=== PATIENT | female | born 1960 | race Caucasian/White ===

== ENCOUNTER 2020-02-19 21:44 | Inpatient (IN) ==
--- OUTSIDE RECORDS SUMMARY | 2020-02-19 21:49 | External Medical Summary | Continuity of Care Document ---
:1960 Author Name Abbi Corona Address Unavailable Unavailable , Care Team Providers Name Role Phone Janel [email or web address] PCP, UNKNOWN Unavailable Unavailable Problems Active medical history not documented Allergies and Adverse Reactions Allergy history not documented Medications Medications not documented Procedures Procedures not documented Immunizations Immunizations not documented Plan of Treatment Planned Observations Planned Goals not documented Results No Known Results Results not documented
--- NOTE | 2020-02-19 22:11 | Emergency Department Note ---
Impression & Plan SOB (shortness of breath), Weakness, Pneumonia, COVID-19 ED Provider Note NAME: LEVI HOWE AGE: 59 SEX: F : 1960 ARRIVES VIA: Ambulance INFORMANT: [Patient][ems] ED PROVIDER(S): [Jose Miguel Workman MD] CHIEF COMPLAINT: Short of breath, vomiting, body aches HISTORY OF PRESENT ILLNESS: The patient is a 59-year-old female who was diagnosed with COVID-19 just 2 days ago. She has been sick for a week with flulike symptoms. Her symptoms started after her flu vaccine and she thought at first, she was having a flu vaccine reaction. She has had vomiting, nausea, body aches, a fever, headache, cough and shortness of breath. She is currently on a Z-Shmuel, prednisone and an albuterol inhaler. She states that she is so weak and exhausted that she has not moved from her couch in 2 days. Today, the ambulance was summoned because of her dyspnea and complaints. She was reportedly in the upper 80s with an O2 saturation when seen by EMS, oxygen made her feel better. REVIEW OF SYSTEMS: See HPI for pertinent positives and negatives. A total of ten systems were reviewed and were otherwise negative. PMHx/PSHx: See Below SOCIAL HISTORY: See Below. PHYSICAL EXAM: GENERAL: Patient is in mild respiratory distress HEENT: No acute trauma, normocephalic atraumatic, mucous membranes moist, no nasal congestion, no scleral icterus. NECK: No stridor, no adenopathy, no meningismus, trachea is midline. LUNGS: She has an increased respiratory rate, no obvious wheeze. She is in some mild respiratory distress. HEART: Regular rhythm, equal radial pulses bilaterally ABDOMEN: Soft, nontender, bowel sounds positive, no hernias, no peritonitis. EXTREMITIES: No cyanosis or edema, full range of motion of all the joints without pain or difficulty, no signs for acute trauma. NEUROLOGIC: Oriented x 3, no acute motor or sensory deficits, no focal weakness. SKIN: No rash, no jaundice, no diaphoresis. DIFFERENTIAL DIAGNOSIS: Reactive airway disease, pneumonia, pneumothorax, COPD, CHF, coronavirus, bronchitis, influenza, dehydration, infections, cardiac ischemia, pulmonary embolism, musculoskeletal, gastrointestinal, as well as other pathologies. EMERGENCY DEPARTMENT COURSE/PROCEDURES: ECG: Indication was shortness of breath. The ECG shows a normal sinus rhythm with a rate of 79. The QTc is 426. There is some mild LVH. No ST elevation, no PVCs. Continuous Cardiac Monitoring: An order was placed for continuous cardiac monitoring. The monitor shows a rate of 70 with normal sinus rhythm. Critical Care Note: I have personally spent 52 minutes of critical care time in the direct management of this patient. This includes bedside care, interpretation of diagnostic studies, and testing, discussion with consultants, patient, and family members, and other required patient management activities. This 52 minutes is in excess of all separately billable procedures. MEDICAL DECISION MAKING: There is no leukocytosis or concerning anemia. There is a normal platelet count. No worrisome coagulopathy. D-dimer is not elevated. A negative D-dimer makes the diagnosis of PE less likely. There is no significant electrolyte abnormality or kidney failure. Lactic acid level is not elevated making severe sepsis less likely. No concerning liver enzyme elevation. Procalcitonin level was not elevated. ECG shows a sinus rhythm, no acute ischemia. Cardiac enzyme testing x1 is not consistent with acute cardiac injury. Chest film shows bilateral infiltrates consistent with pneumonia. The patient was given IV saline, 1 L. She has been watched on the awake overnight monitor. Her O2 saturation was initially recorded at 88%, she has been in the low 90s since. The patient is in need of hospitalization. She has bilateral pneumonia from coronavirus. She is weak, vomiting, short of breath. She is not functioning well at home. I spoke to the patient about her findings. I did speak with case management, the on-call hospitalist was consulted. Past Med/Surg History Medical History Hypertension Social History Smoking Status: Never smoker Feels Safe at Home: Yes Allergies Allergies Allergy/AdvReac Type Severity Reaction Status Date / Time UNKNOWN ANTIBIOTIC Allergy Unknown Unknown Uncoded 02/19/20 23:04 Home Meds Home Medications Medication Instructions Recorded Confirmed albuterol sulfate [Ventolin HFA] 1 - 2 puff INHALATION DIRECTED 02/19/20 02/19/20 PRN azithromycin 250 mg PO DAILY 02/19/20 02/19/20 lisinopril-hydrochlorothiazide 1 tab PO DAILY 02/19/20 02/19/20 prednisone 0 mg PO DAILY 02/19/20 02/19/20 Results & Data (ED) Vital Signs Vital Signs - 24 hr 02/19/20 21:48 02/19/20 21:50 02/19/20 21:51 Temperature 36.7 C Temperature Source Oral Pulse Rate 77 77 Pulse Rate [Apical] Pulse Rate from SpO2 Sensor 77 Pulse Rhythm Regular Pulse Rhythm [Apical] Pulse Strength [Apical] Respiratory Rate 29 H 22 Respiratory Effort / Characteristics Non-Labored Respiratory Depth Normal Respiratory Pattern Regular Blood Pressure 154/90 H 154/90 H Blood Pressure [Right Arm] Blood Pressure Mean 107 111 Blood Pressure Mean [Right Arm] Blood Pressure Position Lying Blood Pressure Position [Right Arm] Pulse Oximetry 96 95 96 Oxygen Delivery Method Room Air Room Air Sepsis Recent Fever Within 48 Hours No Sepsis New/Unexplained Change in Mental Status No Sepsis Action Taken by Nursing No Action Required 02/19/20 21:58 02/19/20 22:00 02/19/20 22:06 Temperature Temperature Source Pulse Rate 75 73 Pulse Rate [Apical] Pulse Rate from SpO2 Sensor 75 73 Pulse Rhythm Pulse Rhythm [Apical] Pulse Strength [Apical] Respiratory Rate 25 H 25 H 25 H Respiratory Effort / Characteristics Moaning Respiratory Depth Respiratory Pattern Blood Pressure 135/86 Blood Pressure [Right Arm] Blood Pressure Mean 91 Blood Pressure Mean [Right Arm] Blood Pressure Position Blood Pressure Position [Right Arm] Pulse Oximetry 95 96 94 Oxygen Delivery Method Room Air Sepsis Recent Fever Within 48 Hours Sepsis New/Unexplained Change in Mental Status Sepsis Action Taken by Nursing 02/19/20 22:07 02/19/20 22:08 02/19/20 22:09 Temperature Temperature Source Pulse Rate 73 72 Pulse Rate [Apical] 70 Pulse Rate from SpO2 Sensor 73 Pulse Rhythm Regular Pulse Rhythm [Apical] Regular Pulse Strength [Apical] Normal Respiratory Rate 26 H 30 H 28 H Respiratory Effort / Characteristics Non-Labored Non-Labored Respiratory Depth Normal Respiratory Pattern Regular Blood Pressure 147/85 H Blood Pressure [Right Arm] 147/85 H Blood Pressure Mean 92 Blood Pressure Mean [Right Arm] 105 Blood Pressure Position Blood Pressure Position [Right Arm] Sitting Pulse Oximetry 95 95 95 Oxygen Delivery Method Room Air Room Air Room Air Sepsis Recent Fever Within 48 Hours Sepsis New/Unexplained Change in Mental Status Sepsis Action Taken by Nursing 02/19/20 22:10 02/19/20 22:20 02/19/20 22:30 Temperature Temperature Source Pulse Rate 72 73 72 Pulse Rate [Apical] Pulse Rate from SpO2 Sensor 73 73 72 Pulse Rhythm Pulse Rhythm [Apical] Pulse Strength [Apical] Respiratory Rate 31 H 28 H 28 H Respiratory Effort / Characteristics Respiratory Depth Respiratory Pattern Blood Pressure 122/78 Blood Pressure [Right Arm] Blood Pressure Mean 94 Blood Pressure Mean [Right Arm] Blood Pressure Position Blood Pressure Position [Right Arm] Pulse Oximetry 95 93 93 Oxygen Delivery Method Sepsis Recent Fever Within 48 Hours Sepsis New/Unexplained Change in Mental Status Sepsis Action Taken by Nursing 02/19/20 22:40 02/19/20 22:53 02/19/20 23:30 Temperature Temperature Source Pulse Rate 71 Pulse Rate [Apical] 72 Pulse Rate from SpO2 Sensor 71 Pulse Rhythm Pulse Rhythm [Apical] Pulse Strength [Apical] Respiratory Rate 31 H 22 Respiratory Effort / Characteristics Non-Labored Respiratory Depth Respiratory Pattern Blood Pressure Blood Pressure [Right Arm] 153/91 H Blood Pressure Mean Blood Pressure Mean [Right Arm] 111 Blood Pressure Position Blood Pressure Position [Right Arm] Pulse Oximetry 93 93 94 Oxygen Delivery Method Room Air Room Air Sepsis Recent Fever Within 48 Hours Sepsis New/Unexplained Change in Mental Status Sepsis Action Taken by Nursing 02/20/20 00:00 02/20/20 00:12 Temperature Temperature Source Pulse Rate Pulse Rate [Apical] 71 Pulse Rate from SpO2 Sensor Pulse Rhythm Pulse Rhythm [Apical] Pulse Strength [Apical] Respiratory Rate 22 Respiratory Effort / Characteristics Non-Labored Respiratory Depth Respiratory Pattern Blood Pressure Blood Pressure [Right Arm] 134/86 Blood Pressure Mean Blood Pressure Mean [Right Arm] 102 Blood Pressure Position Blood Pressure Position [Right Arm] Pulse Oximetry 92 Oxygen Delivery Method Room Air Sepsis Recent Fever Within 48 Hours Sepsis New/Unexplained Change in Mental Status Sepsis Action Taken by [facility]way Medications Current Medication List: was personally reviewed by me Laboratory Data Attestation: I reviewed the patient's lab results. Result diagrams: 02/19/20 22:05 02/19/20 22:05 Lab Results 02/19/20 02/19/20 02/19/20 Range/Units 22:05 22:05 22:05 WBC 8.34 (4.8-10.8) K/uL RBC 5.08 (4.2-5.4) M/uL Hgb 15.5 (12.0-16.0) g/dL Hct 46.5 (37-47) % MCV 91.5 (80-100) fL MCH 30.5 (25-34) pg MCHC 33.3 (32-36) g/dL RDW Std Deviation 44.3 (36.4-46.3) fL RDW Coeff of Lisha 13.2 (11.5-14.5) % Plt Count 210 (130-400) K/uL MPV 11.6 H (7.4-10.4) fL Immature Gran % (Auto) 2.2 % Neut % (Auto) 69.8 % Lymph % (Auto) 18.5 % [place] % (Auto) 9.4 % Eos % (Auto) 0.0 % Baso % (Auto) 0.1 % Neut # (Auto) 5.83 (1.4-6.5) K/uL Lymph # (Auto) 1.54 (1.2-3.4) K/uL [place] # (Auto) 0.78 H (0.11-0.59) K/uL Eos # (Auto) 0.00 (0-0.5) K/uL Baso # (Auto) 0.01 (0-0.2) K/uL Immature Gran # (Auto) 0.18 H (0.00-0.02) K/uL PT 12.4 H (9.0-12.0) Seconds INR 1.2 H (0.9-1.1) APTT 26.1 (21.0-31.0) Seconds PTT Ratio 0.9 D-Dimer (0-500) ug/L FEU Sodium (136-145) mmol/L Potassium (3.5-5.1) mmol/L Chloride (98-107) mmol/L Carbon Dioxide (21-32) mmol/L Anion Gap (3-11) BUN (7-18) mg/dl Creatinine (0.6-1.2) mg/dl Est Cr Clr Drug Dosing ml/min Est GFR ( Amer) Est GFR (Non-Af Amer) BUN/Creatinine Ratio (10-20) Glucose (70-99) mg/dl Lactate (0.4-2.0) mmol/L Calcium (8.5-10.1) mg/dl Magnesium (1.8-2.4) mg/dl Total Bilirubin (0.2-1) mg/dl AST (15-37) U/L ALT (12-78) U/L Alkaline Phosphatase (45-117) U/L Troponin I (0-0.045) ng/ml Total Protein (6.4-8.2) gm/dl Albumin (3.4-5.0) gm/dl Globulin (2.5-4.0) gm/dl Albumin/Globulin Ratio (0.9-2) Procalcitonin < 0.05 (0-0.5) ng/ml 02/19/20 02/19/20 02/19/20 Range/Units 22:05 22:05 22:15 WBC (4.8-10.8) K/uL RBC (4.2-5.4) M/uL Hgb (12.0-16.0) g/dL Hct (37-47) % MCV (80-100) fL MCH (25-34) pg MCHC (32-36) g/dL RDW Std Deviation (36.4-46.3) fL RDW Coeff of Lisha (11.5-14.5) % Plt Count (130-400) K/uL MPV (7.4-10.4) fL Immature Gran % (Auto) % Neut % (Auto) % Lymph % (Auto) % [place] % (Auto) % Eos % (Auto) % Baso % (Auto) % Neut # (Auto) (1.4-6.5) K/uL Lymph # (Auto) (1.2-3.4) K/uL [place] # (Auto) (0.11-0.59) K/uL Eos # (Auto) (0-0.5) K/uL Baso # (Auto) (0-0.2) K/uL Immature Gran # (Auto) (0.00-0.02) K/uL PT (9.0-12.0) Seconds INR (0.9-1.1) APTT (21.0-31.0) Seconds PTT Ratio D-Dimer 330 (0-500) ug/L FEU Sodium 137 (136-145) mmol/L Potassium 3.8 (3.5-5.1) mmol/L Chloride 105 (98-107) mmol/L Carbon Dioxide 26 (21-32) mmol/L Anion Gap 6.0 (3-11) BUN 13 (7-18) mg/dl Creatinine 0.79 (0.6-1.2) mg/dl Est Cr Clr Drug Dosing 111.0 ml/min Est GFR ( Amer) 96.3 Est GFR (Non-Af Amer) 83.1 BUN/Creatinine Ratio 16.2 (10-20) Glucose 150 H (70-99) mg/dl Lactate 1.4 (0.4-2.0) mmol/L Calcium 8.8 (8.5-10.1) mg/dl Magnesium 2.2 (1.8-2.4) mg/dl Total Bilirubin 0.8 (0.2-1) mg/dl AST 51 H (15-37) U/L ALT 49 (12-78) U/L Alkaline Phosphatase 112 (45-117) U/L Troponin I < 0.015 (0-0.045) ng/ml Total Protein 7.6 (6.4-8.2) gm/dl Albumin 3.3 L (3.4-5.0) gm/dl Globulin 4.3 H (2.5-4.0) gm/dl Albumin/Globulin Ratio 0.8 L (0.9-2) Procalcitonin (0-0.5) ng/ml Administered Medications Discontinued Medications Sodium Chloride (Nss 1000ml) 1,000 mls @ 999 mls/hr IV .Q1H1M REYNALDO Stop: 02/19/20 23:15 Last Infusion: 02/19/20 23:23 Dose: 0 mls/hr Documented by: [id number] Admin: 02/19/20 22:14 Dose: 999 mls/hr Documented by: [id number] Ioversol (Optiray 320 125ml) 125 ml IV ONCE ONE Stop: 02/20/20 00:06 Last Admin: 02/20/20 00:05 Dose: 112 ml Documented by: [id number] Imaging Data Attestation: I personally reviewed and interpreted this imaging study as follows: My Impression: Chest x-ray: There are bilateral infiltrates consistent with a bilateral pneumonia. No pneumothorax. Discharge Plan Visit Data Chief Complaint: Shortness of Breath/Dyspnea Stated Complaint: SOB, COUGH, DIARRHEA, NAUSEA, COVID + ED Provider: Jose Miguel Workman Discharge Problem: SOB (shortness of breath), Weakness, Pneumonia, COVID-19 Patient Disposition: Admitted As Inpatient Condition: Fair Forms Stand Alone Forms: My [facility] iMove Prescriptions Prescriptions: No Action azithromycin 250 mg tablet 250 mg PO DAILY RF: 0 prednisone 20 mg tablet 0 mg PO DAILY RF: 0 lisinopril-hydrochlorothiazide 10-12.5 mg tablet 1 tab PO DAILY RF: 0 albuterol sulfate [Ventolin HFA] 90 mcg/actuation HFA aerosol inhaler 1 - 2 puff INHALATION DIRECTED PRN (Reason: Shortness Of Breath) RF: 0 Referrals Referrals: PCP,NO [Primary Care Provider] - Discharge Problem: Pneumonia Qualifiers: Pneumonia type: due to unspecified organism Laterality: bilateral Lung location: unspecified part of lung Qualified Code(s): J18.9 - Pneumonia, unspecified organism
[2020-02-19] MEDS ORDERED: SODIUM CHLORIDE 0.9% 1000ML 1,000 ML IV SCH (22:15)
[2020-02-19 22:16] LABS: Basophils # (auto) 0.01 K/uL (0-0.2); Basophils % (auto) 0.1 %; Hematocrit (blood only) 46.5 % (37-47); Hemoglobin 15.5 g/dL (12.0-16.0); Immature Granulocytes # (auto) 0.18 K/uL (0.00-0.02); Immature Granulocytes % (auto) 2.2 %; Lymphocytes # (auto) 1.54 K/uL (1.2-3.4); Lymphocytes % (auto) 18.5 %; Mean Corpuscular Hemoglobin 30.5 pg (25-34); Mean Corpuscular Hgb Conc 33.3 g/dL (32-36); Mean Corpuscular Volume 91.5 fL (80-100); Mean Platelet Volume 11.6 fL (7.4-10.4); Monocytes # (auto) 0.78 K/uL (0.11-0.59); Monocytes % (auto) 9.4 %; Neutrophils # (auto) 5.83 K/uL (1.4-6.5); Neutrophils % (auto) 69.8 %; Platelet Count 210 K/uL (130-400); RDW Coefficient of Variation 13.2 % (11.5-14.5); RDW Standard Deviation 44.3 fL (36.4-46.3); Red Blood Count 5.08 M/uL (4.2-5.4); White Blood Count 8.34 K/uL (4.8-10.8)
[2020-02-19 22:29] LABS: INR 1.2 (0.9-1.1); Partial Thromboplastin Ratio 0.9; Partial Thromboplastin Time 26.1 Seconds (21.0-31.0); Prothrombin Time 12.4 Seconds (9.0-12.0)
[2020-02-19 22:32] LABS: Alanine Aminotransferase 49 U/L (12-78); Albumin Level 3.3 gm/dl (3.4-5.0); Aspartate Aminotransferase 51 U/L (15-37); BUN Creatinine Ratio 16.2 (10-20); Blood Urea Nitrogen 13 mg/dl (7-18); Calcium 8.8 mg/dl (8.5-10.1); Carbon Dioxide 26 mmol/L (21-32); Chloride 105 mmol/L (98-107); Est GFR (African American) 96.3; Est GFR (Non-African American) 83.1; Glucose 150 mg/dl (70-99); Magnesium 2.2 mg/dl (1.8-2.4); Potassium 3.8 mmol/L (3.5-5.1); Sodium 137 mmol/L (136-145)
[2020-02-19 22:37] LABS: Albumin Globulin Ratio 0.8 (0.9-2); Alkaline Phosphatase 112 U/L (45-117); Bilirubin,Total 0.8 mg/dl (0.2-1); Globulin 4.3 gm/dl (2.5-4.0); Total Protein 7.6 gm/dl (6.4-8.2); Troponin I < 0.015 ng/ml (0-0.045)
[2020-02-19 23:39] LABS: D Dimer 330 ug/L FEU (0-500)
[2020-02-20] MEDS ORDERED: OPTIRAY 320 125ml IV ONE (00:05)
--- NOTE | 2020-02-20 00:59 | History & Physical Report ---
Date of Service February 20, 2020 Assessment & Plan (1) Pneumonia due to COVID-19 virus: Hold oral prednisone, and azithromycin. Get Decadron 10 mg IV now then 6 mg IV every morning. Ceftriaxone 2 g IV daily Azithromycin 500 mg IV daily Albuterol HFA 2 puffs 4 times daily, and 2 puffs every 2 hours as needed Guaifenesin extended release 600 mg p.o. twice daily. Begin nasal cannula 2 L oxygen for pulse ox 90% on room air Lovenox 0.5 mg kilogram subcu daily Patient has consented to convalescent plasma. Will discuss with pulmonology treatment with remdesivir. Present on Admission?: Yes (2) Hypertension: Hold lisinopril/HCTZ Present on Admission?: Yes History of Present Illness Chief Complaint: The patient is brought to the emergency department by EMS, due to worsening vomiting, nausea, body aches, fever, headache, cough, shortness of breath and increased lethargy Primary Care Provider: NO PCP The patient is a 59-year-old female with a past medical history including hypertension, who has been with the above symptoms for 1 week, but was recently diagnosed with COVID-19 2 days ago on 02/16. She had been placed on a Z-Shmuel, prednisone and an albuterol inhaler, but due to worsening symptoms as noted above, she was brought to the ED by EMS. She did have a CT scan of her chest, which had the bilateral groundglass opacities, consistent with COVID-19 infection. Allergies Allergy/AdvReac Type Severity Reaction Status Date / Time UNKNOWN ANTIBIOTIC Allergy Unknown Unknown Uncoded 02/19/20 23:04 Home Medications Home Medications Medication Instructions Recorded Confirmed Type albuterol sulfate [Ventolin HFA] 1 - 2 puff INHALATION DIRECTED 02/19/20 02/19/20 History PRN azithromycin 250 mg PO DAILY 02/19/20 02/19/20 History lisinopril-hydrochlorothiazide 1 tab PO DAILY 02/19/20 02/19/20 History prednisone 0 mg PO DAILY 02/19/20 02/19/20 History Past Med/Surg History Medical History Hypertension Social History Smoking Status: Never smoker Hx Alcohol Use: No Hx Substance Use: No Preferred Language: Welsh Communication Ability: Effective Carding Supervisor Required: No Beliefs That Will Affect Care: None Current Living Situation: Spouse Feels Safe at Home: Yes Assistive Devices: None Review of Systems Review of Systems: The patient denies chest pain, palpitations, lower extremity swelling, sore throat, abdominal pain, pelvic pain, blood in urine or stool, dysuria, urinary frequency or urgency, memory loss, loss of consciousness, rash, abnormal bruising or bleeding, imbalance, focal weakness, numbness or tingling in arms or legs, back or neck pain, or night sweats. The review of systems is otherwise negative other than for that already noted above, and at least 10 systems have been reviewed. Physical Exam Physical Exam: The patient is awake, alert and oriented 3, looks very fatigued, normocephalic and atraumatic, lying in bed and in no acute distress. HEENT--PERRL, EOMI, mucous membranes and oropharynx dry. Neck--supple. No JVD. No bruits. Thyroid normal, trachea midline, no adenopathy. Heart--normal S1 and S2. No murmurs, rubs or gallops. Lungs--clear bilaterally, no respiratory distress, no accessory muscle use. Abdomen--normal bowel sounds and soft. Nontender. Nondistended. Obese Extremities--no cyanosis or clubbing. No edema. Dermatologic--normal skin turgor, normal color, no abnormal lymph nodes, no rash. Neurologic--cranial nerves II through XII grossly intact. Rheumatologic--normal range of motion. Psychiatric--normal affect. Results & Data Results & Data ([facility]) Vital Signs (Past 12 Hours) Vital Signs Temp Pulse Pulse Resp BP BP Pulse Ox 02/20/20 00:00 71 22 134/86 92 02/19/20 23:30 72 22 153/91 H 94 02/19/20 22:53 93 02/19/20 22:40 71 31 H 93 02/19/20 22:30 72 28 H 122/78 93 02/19/20 22:20 73 28 H 93 02/19/20 22:10 72 31 H 95 02/19/20 22:09 72 28 H 95 02/19/20 22:08 30 H 95 02/19/20 22:07 73 70 26 H 147/85 H 147/85 H 95 02/19/20 22:06 25 H 94 02/19/20 22:00 73 25 H 135/86 96 02/19/20 21:58 75 25 H 95 02/19/20 21:51 98.1 F 77 22 154/90 H 96 02/19/20 21:50 77 29 H 154/90 H 95 02/19/20 21:48 96 Laboratory Results Laboratory Results WBC 8.34 K/uL (4.8-10.8) 02/19/20 22:05 RBC 5.08 M/uL (4.2-5.4) 02/19/20 22:05 Hgb 15.5 g/dL (12.0-16.0) 02/19/20 22:05 Hct 46.5 % (37-47) 02/19/20 22:05 MCV 91.5 fL (80-100) 02/19/20 22:05 MCH 30.5 pg (25-34) 02/19/20 22:05 MCHC 33.3 g/dL (32-36) 02/19/20 22:05 RDW Std Deviation 44.3 fL (36.4-46.3) 02/19/20 22:05 RDW Coeff of Lisha 13.2 % (11.5-14.5) 02/19/20 22:05 Plt Count 210 K/uL (130-400) 02/19/20 22:05 MPV 11.6 fL (7.4-10.4) H 02/19/20 22:05 Immature Gran % (Auto) 2.2 % 02/19/20 22:05 Neut % (Auto) 69.8 % 02/19/20 22:05 Lymph % (Auto) 18.5 % 02/19/20 22:05 [place] % (Auto) 9.4 % 02/19/20 22:05 Eos % (Auto) 0.0 % 02/19/20 22:05 Baso % (Auto) 0.1 % 02/19/20 22:05 Neut # (Auto) 5.83 K/uL (1.4-6.5) 02/19/20 22:05 Lymph # (Auto) 1.54 K/uL (1.2-3.4) 02/19/20 22:05 [place] # (Auto) 0.78 K/uL (0.11-0.59) H 02/19/20 22:05 Eos # (Auto) 0.00 K/uL (0-0.5) 02/19/20 22:05 Baso # (Auto) 0.01 K/uL (0-0.2) 02/19/20 22:05 Immature Gran # (Auto) 0.18 K/uL (0.00-0.02) H 02/19/20 22:05 PT 12.4 Seconds (9.0-12.0) H 02/19/20 22:05 INR 1.2 (0.9-1.1) H 02/19/20 22:05 APTT 26.1 Seconds (21.0-31.0) 02/19/20 22:05 PTT Ratio 0.9 02/19/20 22:05 D-Dimer 330 ug/L FEU (0-500) 02/19/20 22:05 Sodium 137 mmol/L (136-145) 02/19/20 22:05 Potassium 3.8 mmol/L (3.5-5.1) 02/19/20 22:05 Chloride 105 mmol/L (98-107) 02/19/20 22:05 Carbon Dioxide 26 mmol/L (21-32) 02/19/20 22:05 Anion Gap 6.0 (3-11) 02/19/20 22:05 BUN 13 mg/dl (7-18) 02/19/20 22:05 Creatinine 0.79 mg/dl (0.6-1.2) 02/19/20 22:05 Est Cr Clr Drug Dosing 111.0 ml/min 02/19/20 22:05 Est GFR ( Amer) 96.3 02/19/20 22:05 Est GFR (Non-Af Amer) 83.1 02/19/20 22:05 BUN/Creatinine Ratio 16.2 (10-20) 02/19/20 22:05 Glucose 150 mg/dl (70-99) H 02/19/20 22:05 Lactate 1.4 mmol/L (0.4-2.0) 02/19/20 22:15 Calcium 8.8 mg/dl (8.5-10.1) 02/19/20 22:05 Magnesium 2.2 mg/dl (1.8-2.4) 02/19/20 22:05 Total Bilirubin 0.8 mg/dl (0.2-1) 02/19/20 22:05 AST 51 U/L (15-37) H 02/19/20 22:05 ALT 49 U/L (12-78) 02/19/20 22:05 Alkaline Phosphatase 112 U/L (45-117) 02/19/20 22:05 Troponin I < 0.015 ng/ml (0-0.045) 02/19/20 22:05 Total Protein 7.6 gm/dl (6.4-8.2) 02/19/20 22:05 Albumin 3.3 gm/dl (3.4-5.0) L 02/19/20 22:05 Globulin 4.3 gm/dl (2.5-4.0) H 02/19/20 22:05 Albumin/Globulin Ratio 0.8 (0.9-2) L 02/19/20 22:05 Procalcitonin < 0.05 ng/ml (0-0.5) 02/19/20 22:05 Diagnostic Findings [facility] Patient: LEVI HOWE (Female) : 64 Status: ER Date: 02/20/20 00:04 Room #: History: SOB, COUGH, POSITIVE COVID-19, NAUSEA Slices: [id number] Priors: Tech: Fantasma Phillips @ [phone] Exams: CTA CHEST Contrast: IV Amt: 112 ML OPTIRAY 320 Accession Numbers: [id number] Preliminary Findings Only See Final Report For Complete Findings CTA CHEST: Exam is limited due to decreased resolution related to beam hardening artifact from large body habitus and patient's arms. Borderline cardiomegaly. Within the limits of the exam there is no filling defect within the pulmonary arteries to suggest embolus. No aortic dissection. Numerous bilateral subpleural groundglass opacities consistent with multifocal pneumonitis. This is nonspecific and associated with viral etiology including Covid 19, bacterial or idiopathic. The trachea is central bronchi are unremarkable. The visualized upper abdominal structures within normal limits. Radiologist: Janina Kennedy MD Study ready at 00:08 and initial results transmitted at 00:26 *This report constitutes a preliminary interpretation only. Non-acute findings felt to be unrelated to the clinical presentation may not be discussed in this report. The study will be interpreted and a final report will be generated by the local Radiologist the following shift. To reach the hospital radiology department call [phone]. If a discrepancy is found between the preliminary and final interpretations of this study, please notify us via our Client Portal at [email or web address] QA Exams.You can also fax this report with a description of the discrepancy, or include the final report, to our daytime fax number [phone].If faxing, please indicate the severity of discrepancy using one of the following categories: [ ] 1 - Agree/Informational [ ] 2 - Unlikely to Affect Management [ ] 3 - Possible Eventual Change of Management [ ] 4 - Probable Immediate Change of Management For all other patient related information, please fax us at [phone]. [id number] Code Status & VTE Plan Code Status DNR/DNI VTE Prophylaxis Plan VTE Prophylaxis will be ordered: Yes PG Care Time/CCT Total # of Minutes Spent Total Time Spent with Patient: Total time spent is greater than 50% in coordination of care (as documented) at patient's floor/unit and/or counseling patient: Coding Level of Care Code 24389 Initial Inpt Care Lvl 3 Diagnoses Pneumonia due to COVID-19 virus U07.1; J12.89 Hypertension I10
[2020-02-20] MEDS ORDERED: DEXAMETHASONE SOD INJ 10 MG/ML VIAL IV ONE (01:03)
[2020-02-20] MEDS ORDERED: ENOXAPARIN 0.5 MG/KG SQ SCH (03:23)
[2020-02-20] MEDS ORDERED: ONDANSETRON INJ 2 MG/ML 2 ML VIAL IV PRN (03:23)
[2020-02-20] MEDS: ACETAMINOPHEN 325 MG TAB PO PRN (04:20)
--- NOTE | 2020-02-20 06:42 | XRay Report ---
XR chest 1V portable HISTORY: 59 years-old Female SEPSIS acute sepsis COMPARISON: CTA chest of same day, chest radiograph 01/29/2007 TECHNIQUE: Portable AP view of the chest. FINDINGS: Cardiac silhouette is mildly enlarged. No pneumothorax, pleural effusion or overt pulmonary edema. Pe ripheral predominant ill-defined bilateral opacities. Bones appear grossly intact. IMPRESSION: 1. Bilateral peripheral predominant ill-defined airspace opacities are suggestive of an atypical pneu monitis such as viral pneumonia. 2. Mild cardiomegaly. ACT 112: Negative or not required by law. The above report was generated using voice recognition software. It may contain grammatical, syntax o r spelling errors. Electronically signed by: Terry Clifton M.D. 02/20/2020 6:41 AM
--- NOTE | 2020-02-20 07:06 | CT Scan Report ---
CT ANGIOGRAM OF THE CHEST CLINICAL HISTORY: Atypical chest pain. Cough. Possible pulmonary embolism. COMPARISON STUDY: Chest x-ray dated 02/19/2020 TECHNIQUE: Following the IV administration of 112 mL of Optiray-320, CT angiogram of the thorax was p erformed from the thoracic inlet to the lung bases utilizing the pulmonary embolus protocol. Images a re reviewed in the axial, sagittal, and coronal planes. IV contrast was administered without complica tion. MIP imaging was performed. A dose lowering technique was utilized adhering to the principles o f ALARA. CT DOSE: 647.28 mGycm FINDINGS: There is hepatic steatosis. There are mildly enlarged paratracheal and subcarinal lymph nodes. There is no pathologic hilar adeno chelsea There was no evidence of thoracic aortic dilatation. Evaluation of the pulmonary arteries is somewhat limited due to respiratory motion artifact. There ar e no definite pulmonary artery filling defects. Correlation with leg ultrasonography could be obtaine d if there is a strong clinical suspicion over the presence of acute pulmonary embolism. There are no significant pleural effusions There are multiple small subpleural airspace opacities. There is mild interstitial thickening. There is mild dependent atelectasis. IMPRESSION: 1. Technically limited study 2. No evidence of acute pulmonary embolism given the technical limitations of the study. This remains a strong clinical concern, correlation with leg ultrasonography could be obtained 3. Multiple subpleural airspace/groundglass opacities suggestive of a multifocal pneumonitis 4. Hepatic steatosis 5. Minimally enlarged mediastinal lymph nodes ACT 112: Negative or not required by law. Electronically signed by: Gigi Damon M.D. 02/20/2020 7:05 AM
[2020-02-20] MEDS: ALBUTEROL HFA 8 GM INHALER INH SCH ×4 (07:37→20:01)
[2020-02-20] MEDS ORDERED: ENOXAPARIN 80 MG/0.8 ML SYR SQ SCH (09:00)
[2020-02-20] MEDS: cefTRIAXone SODIUM 2,000 MG in DEXTROSE 5% 50 ML IV SCH (09:21)
[2020-02-20] MEDS: AZITHROMYCIN 500 MG in DEXTROSE 5% 250 ML IV SCH (09:22)
[2020-02-20] MEDS: dexAMETHasone 6 MG in SYRINGE 0 ML IV SCH (09:22)
[2020-02-20] MEDS: guaiFENesin 600 MG TABCR PO SCH ×2 (09:22→20:11)
--- NOTE | 2020-02-20 16:07 | Hospitalist Progress Note ---
Date of Service February 20, 2020 Assessment & Plan (1) Pneumonia due to COVID-19 virus: Day #2 of 10 of decadron. Given her hypoxia and ongoing O2 requirement I obtained consent for convalescent plasma. FDA-issued patient handout given. Type/screen done. Continue supportive care with bronchodilators, mucinex, NC O2. Add flutter valve and incentive spirometry. Will hold off on remdesivir - likely to give little benefit given her place in the course of the illness (8+ days out). Reasonable to continue rocephin/zithromax for any superimposed bacterial pneumonia. Recheck labs including d-dimer in am. (2) Hypertension: Hold lisinopril/HCTZ - BPs are controlled without them. (3) Dyspepsia: add pepcid 20mg BID (4) DVT prophylaxis: lovenox 0.5mg/kg daily left message for on phone # listed in chart Admission and Anticipated Discharge Date Admission Date: February 20, 2020 Subjective patient feeling overall unwell. c/o stomach upset and diarrhea. appetite is fair at best. no loss of smell or taste. continues with cough - no sputum. has chest tightness and dyspnea on exertion. requiring 1 L NC. symptoms began last Monday into Monday (8 days ago). Review of Systems Constitutional: + fatigue and + anorexia; no fever Ear, Nose, Mouth, Throat: no nasal obstruction and no sore throat Cardiovascular: as per Subjective / HPI Gastrointestinal: + abdominal pain, + nausea and + diarrhea/loose stools; no vomiting Physical Exam Constitutional: + morbidly obese; no acute distress ENMT: external ear and nose normal, oropharynx normal Respiratory: no respiratory distress Auscultation: + diminished lung sounds and + crackles (b/l bases, worse on left (fine)); no wheezes Cardiovascular: Rate/Rhythm: regular rate and regular rhythm Heart Sounds: normal S1 and normal S2; no murmur Vessels: posterior tibial pulses present and dorsalis pedis pulses present; no JVD Extremities: no edema Gastrointestinal (Abdomen): Inspection/Auscultation: normal bowel sounds; abdomen not distended Percussion/Palpation: + abdomen tender (epigastric area ) and abdomen soft; no hepatosplenomegaly Skin: fingernail clubbing Psychiatric: Orientation: alert and oriented x 3 Results & Data Results & Data ([facility]) Vital Signs (Past 12 Hours) Vital Signs Temp Pulse Pulse Pulse Resp BP Pulse Ox 02/20/20 15:59 94 02/20/20 15:42 36.6 C 60 118/74 94 02/20/20 15:03 58 L 16 92 02/20/20 11:52 36.4 C L 65 18 136/84 92 02/20/20 11:22 68 18 94 02/20/20 09:21 36.5 C 67 20 124/72 94 02/20/20 07:37 67 22 94 02/20/20 07:08 67 Laboratory Results Laboratory Results - last 24 hr 02/19/20 02/19/20 02/19/20 22:05 22:05 22:05 WBC 8.34 RBC 5.08 Hgb 15.5 Hct 46.5 MCV 91.5 MCH 30.5 MCHC 33.3 RDW Std Deviation 44.3 RDW Coeff of Lisha 13.2 Plt Count 210 MPV 11.6 H Immature Gran % (Auto) 2.2 Neut % (Auto) 69.8 Lymph % (Auto) 18.5 [place] % (Auto) 9.4 Eos % (Auto) 0.0 Baso % (Auto) 0.1 Neut # (Auto) 5.83 Lymph # (Auto) 1.54 [place] # (Auto) 0.78 H Eos # (Auto) 0.00 Baso # (Auto) 0.01 Immature Gran # (Auto) 0.18 H PT 12.4 H INR 1.2 H APTT 26.1 PTT Ratio 0.9 D-Dimer Sodium Potassium Chloride Carbon Dioxide Anion Gap BUN Creatinine Est Cr Clr Drug Dosing Est GFR ( Amer) Est GFR (Non-Af Amer) BUN/Creatinine Ratio Glucose Lactate Calcium Magnesium Total Bilirubin AST ALT Alkaline Phosphatase Troponin I Total Protein Albumin Globulin Albumin/Globulin Ratio Procalcitonin < 0.05 Blood Type Antibody Screen 02/19/20 02/19/20 02/19/20 22:05 22:05 22:15 WBC RBC Hgb Hct MCV MCH MCHC RDW Std Deviation RDW Coeff of Lisha Plt Count MPV Immature Gran % (Auto) Neut % (Auto) Lymph % (Auto) [place] % (Auto) Eos % (Auto) Baso % (Auto) Neut # (Auto) Lymph # (Auto) [place] # (Auto) Eos # (Auto) Baso # (Auto) Immature Gran # (Auto) PT INR APTT PTT Ratio D-Dimer 330 Sodium 137 Potassium 3.8 Chloride 105 Carbon Dioxide 26 Anion Gap 6.0 BUN 13 Creatinine 0.79 Est Cr Clr Drug Dosing 111.0 Est GFR ( Amer) 96.3 Est GFR (Non-Af Amer) 83.1 BUN/Creatinine Ratio 16.2 Glucose 150 H Lactate 1.4 Calcium 8.8 Magnesium 2.2 Total Bilirubin 0.8 AST 51 H ALT 49 Alkaline Phosphatase 112 Troponin I < 0.015 Total Protein 7.6 Albumin 3.3 L Globulin 4.3 H Albumin/Globulin Ratio 0.8 L Procalcitonin Blood Type Antibody Screen 02/20/20 05:00 WBC RBC Hgb Hct MCV MCH MCHC RDW Std Deviation RDW Coeff of Lisha Plt Count MPV Immature Gran % (Auto) Neut % (Auto) Lymph % (Auto) [place] % (Auto) Eos % (Auto) Baso % (Auto) Neut # (Auto) Lymph # (Auto) [place] # (Auto) Eos # (Auto) Baso # (Auto) Immature Gran # (Auto) PT INR APTT PTT Ratio D-Dimer Sodium Potassium Chloride Carbon Dioxide Anion Gap BUN Creatinine Est Cr Clr Drug Dosing Est GFR ( Amer) Est GFR (Non-Af Amer) BUN/Creatinine Ratio Glucose Lactate Calcium Magnesium Total Bilirubin AST ALT Alkaline Phosphatase Troponin I Total Protein Albumin Globulin Albumin/Globulin Ratio Procalcitonin Blood Type A Positive Antibody Screen NEGATIVE PG Care Time/CCT Total # of Minutes Spent Total Time Spent with Patient: Total time spent is greater than 50% in coordination of care (as documented) at patient's floor/unit and/or counseling patient: Coding Level of Care Code 82412 Subseq Hosp Care Lvl 2 Diagnoses Pneumonia due to COVID-19 virus U07.1; J12.89 Hypertension I10 Hypertension type: essential hypertension Dyspepsia R10.13 DVT prophylaxis Z29.9 (1) Hypertension Hypertension type: essential hypertension Qualified Code(s): I10 - Essential (primary) hypertension
[2020-02-20] MEDS ORDERED: FAMOTIDINE 40 MG TABLET PO ONE (16:14)
--- NOTE | 2020-02-21 05:06 | Electrocardiogram Report ---
Test Reason : Blood Pressure : / mmHG Vent. Rate : 079 BPM Atrial Rate : 079 BPM P-R Int : 142 ms QRS Dur : 086 ms QT Int : 372 ms P-R-T Axes : 013 -44 031 degrees QTc Int : 426 ms Normal sinus rhythm Left axis deviation Abnormal ECG When compared with ECG of 29-JAN-2007 14:24, No significant change was found Confirmed by Tha Kam ([id number]) on 02/21/2020 5:06:16 AM Referred By: REFERRED SELF Confirmed By:Tha Kam
[2020-02-21] MEDS: ACETAMINOPHEN 325 MG TAB PO PRN ×3 (05:44→19:57)
[2020-02-21 06:14] LABS: Basophils # (auto) 0.01 K/uL (0-0.2); Basophils % (auto) 0.1 %; Hematocrit (blood only) 44.1 % (37-47); Hemoglobin 14.6 g/dL (12.0-16.0); Immature Granulocytes # (auto) 0.19 K/uL (0.00-0.02); Immature Granulocytes % (auto) 1.6 %; Lymphocytes # (auto) 1.73 K/uL (1.2-3.4); Lymphocytes % (auto) 14.6 %; Mean Corpuscular Hemoglobin 30.5 pg (25-34); Mean Corpuscular Hgb Conc 33.1 g/dL (32-36); Mean Corpuscular Volume 92.3 fL (80-100); Mean Platelet Volume 12.1 fL (7.4-10.4); Monocytes # (auto) 1.14 K/uL (0.11-0.59); Monocytes % (auto) 9.6 %; Neutrophils # (auto) 8.78 K/uL (1.4-6.5); Neutrophils % (auto) 74.1 %; Platelet Count 216 K/uL (130-400); RDW Coefficient of Variation 13.3 % (11.5-14.5); RDW Standard Deviation 45.2 fL (36.4-46.3); Red Blood Count 4.78 M/uL (4.2-5.4); White Blood Count 11.85 K/uL (4.8-10.8)
[2020-02-21 06:18] LABS: D Dimer 440 ug/L FEU (0-500)
[2020-02-21 06:44] LABS: BUN Creatinine Ratio 23.8 (10-20); Calcium 8.2 mg/dl (8.5-10.1); Creatinine Clr Calc Pharmacy 100.3 ml/min; Est GFR (African American) 100.9; Est GFR (Non-African American) 87.1; Potassium 3.7 mmol/L (3.5-5.1)
[2020-02-21] MEDS: ALBUTEROL HFA 8 GM INHALER INH SCH (08:31)
[2020-02-21] MEDS ORDERED: ALBUTEROL HFA 8 GM INHALER INH PRN (08:51)
[2020-02-21] MEDS: cefTRIAXone SODIUM 2,000 MG in DEXTROSE 5% 50 ML IV SCH (08:54)
[2020-02-21] MEDS: dexAMETHasone 6 MG in SYRINGE 0 ML IV SCH (08:54)
[2020-02-21] MEDS: FAMOTIDINE 20 MG TAB PO SCH ×2 (08:55→19:59)
[2020-02-21] MEDS: guaiFENesin 600 MG TABCR PO SCH ×2 (08:55→19:59)
[2020-02-21] MEDS: ENOXAPARIN INJ 60 MG/0.6 ML SYR SQ SCH (08:55)
[2020-02-21] MEDS: AZITHROMYCIN 500 MG in DEXTROSE 5% 250 ML IV SCH (09:48)
--- NOTE | 2020-02-21 19:06 | XRay Report ---
XR chest 1V portable, XR KUB/Abdomen 1 view HISTORY: 59 years-old Female COVID, increased rales b/l acute shortness breath with generalized abdo christine pain COMPARISON: CTA of the chest and chest radiograph 02/19/2020, CT abdomen pelvis 06/04/2007. TECHNIQUE: Portable AP view the chest with KUB radiograph FINDINGS: Chest: There is mildly improved aeration of the lungs. Mild persistent bilateral mostly interstitial opaciti es are redemonstrated. Cardiomegaly. No pneumothorax. Blunting of the left costophrenic angle with cunningham bsegmental left lung base opacities. Bones appear grossly intact. KUB: Gas-filled loop of likely large bowel project over the abdominal left lower quadrant. Bowel gas patte rn is nonobstructive. No definite urolith, pneumatosis or pneumoperitoneum. Degenerative changes of t he hips, pelvis and spine. IMPRESSION: 1. Mildly improved aeration of the lungs with persistent ill-defined interstitial opacities suspiciou s for atypical pneumonitis. 2. Asymmetric left lung base opacities favor atelectasis. 3. Nonobstructive bowel gas pattern. ACT 112: Negative or not required by law. The above report was generated using voice recognition software. It may contain grammatical, syntax o r spelling errors. Electronically signed by: Terry Clifton M.D. 02/21/2020 7:05 PM
--- NOTE | 2020-02-21 21:40 | Hospitalist Progress Note ---
Date of Service February 21, 2020 Assessment & Plan (1) Pneumonia due to COVID-19 virus: Day #3 of 10 of decadron. s/p convalescent plasma. FDA-issued plasma handout given. Remdesivir deferred - likely to give little benefit given her place in the course of the illness (8-9+ days out). Reasonable to continue rocephin/zithromax for any superimposed bacterial pneumonia. Day #2 of such. Labs stable today. CXR improved today. O2 weaned off. Cont pulmonary toilet. (2) Hypertension: Hold lisinopril/HCTZ - BPs are still controlled without them. (3) Dyspepsia: cont pepcid 20mg BID (4) Abdominal distension: KUB x-ray with 1 single loop of colon that is mildly dilated. No ileus or obstruction however. Suspect GI symptoms are due to COVID. Cont support care. (5) Morbid obesity with BMI of 40.0-44.9, adult: BMI 40 (6) DVT prophylaxis: lovenox 0.5mg/kg daily updated by phone this evening PT eval to ensure readiness for home home this weekend?? Admission and Anticipated Discharge Date Admission Date: February 20, 2020 Subjective patient c/o abdominal bloating/distension. had 1 small liquid stool this am. appetite poor. very fatigued. minimal cough. some MURRY with walking to bathroom. however, her O2 was weaned off this am and sats wnl since then. c/o upper abdominal discomfort w/ coughing. Review of Systems Constitutional: + fatigue and + anorexia; no fever and no chills Ear, Nose, Mouth, Throat: no nasal congestion and no sore throat Cardiovascular: no chest pain and no orthopnea Gastrointestinal: no vomiting Physical Exam Constitutional: + morbidly obese; no acute distress ENMT: external ear and nose normal, oropharynx normal Respiratory: no respiratory distress Auscultation: + diminished lung sounds and + crackles (worse today, especially L base; very course ); no wheezes Cardiovascular: Rate/Rhythm: regular rate and regular rhythm Heart Sounds: normal S1 and normal S2; no murmur Vessels: posterior tibial pulses present and dorsalis pedis pulses present; no JVD Extremities: no edema Gastrointestinal (Abdomen): Inspection/Auscultation: + abdomen distended and normal bowel sounds Percussion/Palpation: + abdomen tender (epigastric area once again); no hepatosplenomegaly Psychiatric: Orientation: alert and oriented x 3 Results & Data Results & Data ([facility]) Vital Signs (Past 12 Hours) Vital Signs Temp Pulse Resp BP Pulse Ox 02/21/20 20:01 36.5 C 62 16 128/81 94 02/21/20 19:30 16 95 02/21/20 10:56 36.4 C L 73 16 121/68 91 Laboratory Results Laboratory Results - last 24 hr 02/21/20 02/21/20 02/21/20 05:40 05:40 05:40 WBC 11.85 H RBC 4.78 Hgb 14.6 Hct 44.1 MCV 92.3 MCH 30.5 MCHC 33.1 RDW Std Deviation 45.2 RDW Coeff of Lisha 13.3 Plt Count 216 MPV 12.1 H Immature Gran % (Auto) 1.6 Neut % (Auto) 74.1 Lymph % (Auto) 14.6 [place] % (Auto) 9.6 Eos % (Auto) 0.0 Baso % (Auto) 0.1 Neut # (Auto) 8.78 H Lymph # (Auto) 1.73 [place] # (Auto) 1.14 H Eos # (Auto) 0.00 Baso # (Auto) 0.01 Immature Gran # (Auto) 0.19 H D-Dimer 440 Sodium 138 Potassium 3.7 Chloride 105 Carbon Dioxide 28 Anion Gap 5.0 BUN 18 Creatinine 0.76 Est Cr Clr Drug Dosing 100.3 Est GFR ( Amer) 100.9 Est GFR (Non-Af Amer) 87.1 BUN/Creatinine Ratio 23.8 H Glucose 135 H Calcium 8.2 L AST 35 ALT 39 PG Care Time/CCT Total # of Minutes Spent Total Time Spent with Patient: Total time spent is greater than 50% in coordination of care (as documented) at patient's floor/unit and/or counseling patient: Coding Level of Care Code 67628 Subseq Hosp Care Lvl 2 Diagnoses Pneumonia due to COVID-19 virus U07.1; J12.89 Hypertension I10 Hypertension type: essential hypertension Dyspepsia R10.13 Abdominal distension R14.0 Morbid obesity with BMI of 40.0-44.9, adult E66.01; Z68.41 DVT prophylaxis Z29.9 (1) Hypertension Hypertension type: essential hypertension Qualified Code(s): I10 - Essential (primary) hypertension
[2020-02-22 06:52] LABS: BUN Creatinine Ratio 29.3 (10-20); Calcium 8.1 mg/dl (8.5-10.1); Est GFR (Non-African American) 100.1; Potassium 3.7 mmol/L (3.5-5.1)
[2020-02-22] MEDS: cefTRIAXone SODIUM 2,000 MG in DEXTROSE 5% 50 ML IV SCH (08:26)
[2020-02-22] MEDS: dexAMETHasone 6 MG in SYRINGE 0 ML IV SCH (08:27)
[2020-02-22] MEDS: ENOXAPARIN INJ 60 MG/0.6 ML SYR SQ SCH (08:27)
[2020-02-22] MEDS: FAMOTIDINE 20 MG TAB PO SCH ×2 (08:27→21:02)
[2020-02-22] MEDS: guaiFENesin 600 MG TABCR PO SCH ×2 (08:27→21:02)
[2020-02-22] MEDS: ACETAMINOPHEN 325 MG TAB PO PRN ×2 (08:28→21:04)
[2020-02-22] MEDS: AZITHROMYCIN 500 MG in DEXTROSE 5% 250 ML IV SCH (09:29)
[2020-02-22] MEDS: CHOLECALCIFEROL 1,000 UNITS 25 MCG TAB PO SCH (09:30)
--- NOTE | 2020-02-22 15:18 | Hospitalist Progress Note ---
Date of Service February 22, 2020 Assessment & Plan (1) Pneumonia due to COVID-19 virus: Clinically improved. Has been off O2 during the daytime since yesterday am. Day #4 of 10 of decadron. s/p convalescent plasma earlier this stay. FDA-issued plasma handout given. Remdesivir deferred - likely to give little benefit given her place in the course of the illness (9-10+ days out). Continues on rocephin/zithromax for any superimposed bacterial pneumonia. Day #3 of these. Labs stable today. PLAN: * stop IV decadron - change to PO decadron 6mg daily and complete remainder of course * stop rocephin/zithromax * change to doxycycline 100mg BID x 4 more days starting in am * ambulate today and cont pulmonary toilet * overnight oximetry study - likely to qualify for nocturnal O2 given her known CHANDNI anticipate d/c in am. (2) Hypertension: BPs starting to rise will resume TORI in am (3) Dyspepsia: cont pepcid 20mg BID (4) Abdominal distension: KUB x-ray with 1 single loop of colon that was mildly dilated. No ileus or obstruction however. Suspect GI symptoms are due to COVID. These symptoms are improved today. Cont support care. (5) Morbid obesity with BMI of 40.0-44.9, adult: BMI 40 (6) CHANDNI (obstructive sleep apnea): qualified for CPAP with O2 about 1-2 years ago. never completed the process. overnight oximetry study to see if Nocturnal O2 is needed. ultimately, however, needs to get back with the provider who performed sleep study to complete that process (7) DVT prophylaxis: lovenox 0.5mg/kg daily updated by phone this evening again anticipate d/c home in am Admission and Anticipated Discharge Date Admission Date: February 20, 2020 Anticipated date of discharge: 02/23/20 Subjective overall patient is improved. appetite is better today. only 1 liquid stool since this am. abdominal bloating is better. cough remains but improved. mild MURRY remains. staff overnight noted frequent desaturation and bradycardia. 2 L NC O2 applied for such. patient reports dx of CHANDNI about 1 to 2 years ago. completed sleep study. CPAP with blended O2 advised. didn't get fitted for CPAP however. reports ongoing snoring. Review of Systems Constitutional: + fatigue; no fever and no chills Ear, Nose, Mouth, Throat: no nasal congestion and no sore throat Respiratory: + cough and + dyspnea on exertion Cardiovascular: + chest pain (Mild - with coughing, etc.) Gastrointestinal: no abdominal pain, no nausea and no vomiting Physical Exam Constitutional: + morbidly obese; no acute distress ENMT: external ear and nose normal, oropharynx normal Respiratory: no respiratory distress Auscultation: + diminished lung sounds (Inspiratory effort poor with resulting poor air movement); no crackles and no wheezes Cardiovascular: Rate/Rhythm: regular rate and regular rhythm Heart Sounds: normal S1 and normal S2; no murmur Vessels: posterior tibial pulses present and dorsalis pedis pulses present; no JVD Extremities: no edema Gastrointestinal (Abdomen): Inspection/Auscultation: + abdomen distended (Improved from yesterday) and normal bowel sounds Percussion/Palpation: abdomen nontender and no hepatosplenomegaly Psychiatric: Orientation: alert and oriented x 3 Results & Data Results & Data ([facility]) Vital Signs (Past 12 Hours) Vital Signs Temp Pulse Pulse Resp BP Pulse Ox 02/22/20 14:40 36.4 C L 68 24 159/92 H 96 02/22/20 07:13 72 02/22/20 06:29 36.8 C 58 L 16 138/90 94 Laboratory Results Laboratory Results - last 24 hr 02/22/20 06:02 Sodium 137 Potassium 3.7 Chloride 105 Carbon Dioxide 27 Anion Gap 5.0 BUN 18 Creatinine 0.62 Est Cr Clr Drug Dosing 123.0 Est GFR ( Amer) 116.0 Est GFR (Non-Af Amer) 100.1 BUN/Creatinine Ratio 29.3 H Glucose 150 H Calcium 8.1 L PG Care Time/CCT Total # of Minutes Spent Total Time Spent with Patient: Total time spent is greater than 50% in coordination of care (as documented) at patient's floor/unit and/or counseling patient: Coding Level of Care Code 86180 Subseq Hosp Care Lvl 2 Diagnoses Pneumonia due to COVID-19 virus U07.1; J12.89 Hypertension I10 Hypertension type: essential hypertension Dyspepsia R10.13 Abdominal distension R14.0 Morbid obesity with BMI of 40.0-44.9, adult E66.01; Z68.41 CHANDNI (obstructive sleep apnea) G47.33 DVT prophylaxis Z29.9 (1) Hypertension Hypertension type: essential hypertension Qualified Code(s): I10 - Essential (primary) hypertension
--- NOTE | 2020-02-23 07:53 | Hospitalist Progress Note ---
Date of Service February 23, 2020 Assessment & Plan (1) Pneumonia due to COVID-19 virus: Clinically improved. Has been off O2 during the daytime since yesterday am. Day #4 of 10 of decadron. s/p convalescent plasma earlier this stay. FDA-issued plasma handout given. Remdesivir deferred - likely to give little benefit given her place in the course of the illness (9-10+ days out). Continues on rocephin/zithromax for any superimposed bacterial pneumonia. Day #3 of these. Labs stable today. PLAN: * stop IV decadron - change to PO decadron 6mg daily and complete remainder of course * stop rocephin/zithromax * change to doxycycline 100mg BID x 4 more days starting in am * ambulate today and cont pulmonary toilet * overnight oximetry study - likely to qualify for nocturnal O2 given her known CHANDNI anticipate d/c in am. (2) Hypertension: BPs starting to rise will resume TORI in am (3) Dyspepsia: cont pepcid 20mg BID (4) Abdominal distension: KUB x-ray with 1 single loop of colon that was mildly dilated. No ileus or obstruction however. Suspect GI symptoms are due to COVID. These symptoms are improved today. Cont support care. (5) Morbid obesity with BMI of 40.0-44.9, adult: BMI 40 (6) CHANDNI (obstructive sleep apnea): qualified for CPAP with O2 about 1-2 years ago. never completed the process. overnight oximetry study to see if Nocturnal O2 is needed. ultimately, however, needs to get back with the provider who performed sleep study to complete that process (7) DVT prophylaxis: lovenox 0.5mg/kg daily updated by phone this evening again anticipate d/c home in am Admission and Anticipated Discharge Date Admission Date: February 20, 2020 Results & Data Results & Data ([facility]) Vital Signs (Past 12 Hours) Vital Signs Temp Pulse Pulse Pulse Resp BP Pulse Ox 02/23/20 04:22 16 96 02/23/20 03:53 97.9 F 58 L 18 149/99 H 96 02/23/20 02:16 14 95 02/23/20 01:59 EDT 51 L 02/22/20 22:40 98.2 F 51 L 14 136/78 97 02/22/20 22:30 14 95 02/22/20 21:35 54 L 02/22/20 21:30 14 95 02/22/20 21:00 98.2 F 60 16 161/98 H 96 Pulse Ox 02/23/20 04:22 02/23/20 03:53 02/23/20 02:16 02/23/20 01:59 EDT 02/22/20 22:40 02/22/20 22:30 02/22/20 21:35 96 02/22/20 21:30 02/22/20 21:00 PG Care Time/CCT Total # of Minutes Spent Total Time Spent with Patient: Total time spent is greater than 50% in coordination of care (as documented) at patient's floor/unit and/or counseling patient: Coding Diagnoses Pneumonia due to COVID-19 virus U07.1; J12.89 Hypertension I10 Hypertension type: essential hypertension Dyspepsia R10.13 Abdominal distension R14.0 Morbid obesity with BMI of 40.0-44.9, adult E66.01; Z68.41 CHANDNI (obstructive sleep apnea) G47.33 DVT prophylaxis Z29.9 (1) Hypertension Hypertension type: essential hypertension Qualified Code(s): I10 - Essential (primary) hypertension
[2020-02-23] MEDS: FAMOTIDINE 20 MG TAB PO SCH (08:19)
[2020-02-23] MEDS: guaiFENesin 600 MG TABCR PO SCH (08:19)
[2020-02-23] MEDS: CHOLECALCIFEROL 1,000 UNITS 25 MCG TAB PO SCH (08:20)
[2020-02-23] MEDS: ENOXAPARIN INJ 60 MG/0.6 ML SYR SQ SCH (08:21)
[2020-02-23] MEDS ORDERED: DOXYCYCLINE HYCLATE 100 MG CAP PO SCH (09:00)
[2020-02-23] MEDS ORDERED: dexAMETHasone 4 MG TAB PO SCH (09:00)
[2020-02-23] MEDS: ACETAMINOPHEN 325 MG TAB PO PRN (12:28)
--- NOTE | 2020-02-23 18:15 | Discharge Summary ---
Date of Service February 23, 2020 Admission HPI Per Admitting Provider The patient is a 59-year-old female with a past medical history including hypertension, who has been with the above symptoms for 1 week, but was recently diagnosed with COVID-19 2 days ago on 02/16. She had been placed on a Z-Shmuel, prednisone and an albuterol inhaler, but due to worsening symptoms as noted above, she was brought to the ED by EMS. She did have a CT scan of her chest, which had the bilateral groundglass opacities, consistent with COVID-19 infection. Principal Diagnosis covid 19 pneumonia Nocturnal hypoxia felt secondary to obesity hypoventilation syndrome, BMI 40 Discharge Exam The patient appeared to be improving Vital signs as documented. Lungs are only with mild coarseness, and appear unlabored Cardiac exam, Rhythm is regular.. No murmurs, rubs or gallops. Abdominal exam reveals normal bowel sounds, soft non tender, no masses Extremities are nonedematous and both pedal pulses are normal. Neurologic exam is alert and oriented, no focal loss of strength or sensation Skin is without bruises or rashes Psychologically is without concerns for anxiety or depression. Discharge Data Allergies Allergy/AdvReac Type Severity Reaction Status Date / Time mustard Allergy Rash Verified 02/20/20 17:17 tomato Allergy Rash Verified 02/20/20 17:17 UNKNOWN ANTIBIOTIC Allergy Unknown Unknown Uncoded 02/19/20 23:04 Consultations 02/19/20 23:18 ED Decision to Admit Stat 02/20/20 03:23 Consult Case Management - Discharge Planning Routine Ordered Studies 02/19/20 23:25 CT angio chest PE protocol Urgent Hospital Course (1) Pneumonia due to COVID-19 virus: Clinically improved. Has been off O2 during the daytime since 02/21/20 complete outpt decadron. s/p convalescent plasma earlier this stay. FDA-issued plasma handout given. Remdesivir deferred - likely to give little benefit given her place in the course of the illness (9-10+ days out). duscgharge on doxycycline 100mg BID x 3 more days * ambulate and cont pulmonary toilet * overnight oximetry study -she did qualify for nocturnal O2 given her known CHANDNI (2) Hypertension: resume TORI in am (3) Dyspepsia: cont pepcid 20mg BID (4) Abdominal distension: KUB x-ray with 1 single loop of colon that was mildly dilated. No ileus or obstruction however. Suspect GI symptoms are due to COVID. These symptoms are resolved (5) Morbid obesity with BMI of 40.0-44.9, adult: BMI 40 (6) CHANDNI (obstructive sleep apnea): qualified for CPAP with O2 about 1-2 years ago. never completed the process. overnight oximetry qualifies for home oxygen, did counselled about having outpt sleep study repeated Total Time Total Time Spent Total Time Spent (In Minutes): It required greater than 30 minutes to prepare this patient for discharge Discharge Plan Discharge Items Patient Disposition: Home - Self-Care Reason For Visit: COVID-19 PNEUMONIA Discharge Diagnosis: covid pneumonia Condition on Discharge: Fair Activity: Resume your previous activity Non-emergency contact: Primary Care Provider Call non-emergency contact if: you have any medication questions and your symptoms worsen Follow-up/Referrals: [facility]PLISA [Primary Care Provider] - Diet: Regular Addtl Attending Provider Instructions: Coronavirus disease 2019 (COVID-19) is a virus that causes a respiratory illness. It is caused by a coronavirus called 2019 novel coronavirus (2019- nCoV). There are many types of coronavirus. Coronaviruses are a very common cause of bronchitis. They may sometimes cause lung infection(pneumonia). Symptoms can range from mild to severe respiratory illness. These viruses are also foundin some animals. COVID-19 was first found in people in [facility], in late 2019. In 2020, several cases of COVID-19 have been confirmed in the [place] Public health officials are working to find the source. How the virus spreads is not yet fully known. It may be spread through droplets of fluid that a person coughs or sneezes into the air. It may be spread if you touch a surface with virus on it, such as a handle or object, and then touch your mouth. What are the symptoms of COVID-19? Some people have no symptoms or mild symptoms. Symptoms may appear 2 to 14 days after contact with the virus. Symptoms can include: Fever Coughing Trouble breathing What are possible complications from COVID-19? In many cases, this virus can cause infection (pneumonia) in both lungs. In some cases, this can cause . How is COVID-19 diagnosed? Your healthcare provider will ask about your symptoms. He or she will also ask about your recent travel and contact with sick people. Testing for the virus is only done through the CDC. If yourhealthcare provider thinks you may have COVID- 19, he or she will work with your local health department and the CDC on testing. Follow all instructions from your healthcare provider. COVID-19 is diagnosed by: Nasal and throat swab. A cotton-tipped swab is wiped inside your nose or throat. This is done to check for viruses in your nasal mucus. Sputum culture. A small sample of mucus coughed from your lungs (sputum) is collected if you have a cough. It is checked for the virus. How is COVID-19 treated? There is currently no medicine to treat the virus. Treatment is done to help your body while it fights the virus. This is known as supportive care. Supportive care may include: Pain medicine. These include acetaminophen and ibuprofen. They are used to help ease pain and reduce fever. Bed rest. This helps your body fight the illness. For severe illness, you may need to stay in the hospital. Care during severe illness may include: IV (intravenous) fluids.These are given through a vein to help keep your body hydrated. Oxygen. Supplemental oxygen or ventilation with a breathing machine (ventilator) may be given. This is done to keep enough oxygen in your body. Are you at risk for COVID-19? If youve been to a place where people have been sick with this virus, you are at risk for infection. You are at risk if you: Recently traveled to an affected area Had contact with a sick person who recently traveled to this area Had contact with a person who was diagnosed with COVID-19 How can COVID-19 be prevented? There is no vaccine yet. The best prevention is to not have contact with the virus. The CDC advises that people should not travel to areas where there are COVID-19 outbreaks right now for any reason that is not urgent. To help prevent spreading the infection, wash your hands often, or use an alcohol-basedhand roving technician. If you are in an area with COVID-19: Wash your hands often. Or use an alcohol-based hand roving technician often. Only touch your eyes, nose, or mouth with clean hands. Dont have contact with people who are sick. Follow local instructions about being in public. For example, you may be told to not use public transport for a period of time. Stay away from markets that have live or animals. Wash your hands after touching any animals. Don't touch animals that may be sick. Dont share eating or drinking tools with sick people. Dont kiss someone who is sick. Clean surfaces often with disinfectant. If you were in an area with COVID-19 in the last 14 days: Call your healthcare provider. He or she can talk with local health staff to see what action may be needed. Follow all instructions from your provider. Take your temperature every morning and evening for at least 14 days. This is to check for fever. Keep a record of the readings. Keep watch for symptoms of the virus. Tell your provider right away if you have symptoms. If you were in an area with COVID-19 and have a fever or other symptoms: Dont panic. Keep in mind that other illnesses can cause similar symptoms. Stay away from work, school, and public places. Limit physical contact with family members. Don't kiss anyone or share eating or drinking utensils. Clean surfaces you touch with disinfectant. This is to help prevent the virus from spreading. Call your healthcare provider. Explain that you have been exposed to COVID-19 and have symptoms. Do this before going to any hospital. Wait for instructions. Keep in mind that healthcare staff may wear protective equipment such as masks, gowns, gloves, and eye protection. You may be put in a separate room. This is to prevent the possible virus from spreading. Tell the healthcare staff about recent travel. This includes local travel on public transport. Staff may need to find other people you have been in contact with. Follow all instructions the healthcare staff give you. If you have been diagnosed with COVID-19 Follow all instructions from your healthcare provider. Dont leave your home, except to get medical care. Call your healthcare providers office before going. They can prepare and give you instructions. This will help prevent the virus from spreading. Dont go to work, school, or public areas. Dont use public transport or taxis. Stay away from other people in your home. Have them wear face masks around you. Dont share household items or food. Wear a face mask if you can. This includes at home or in a medical facility. Cover your face with a tissue when you cough or sneeze. Throw the tissue away. Wash your hands. Wash your hands often. Caregivers should: Follow all instructions from healthcare staff. Wear a face mask and protective clothing as advised. Wash hands often. Keep track of the sick persons symptoms. Clean surfaces, fabrics, and laundry thoroughly. Keep other people away from the sick person. When to call your healthcare provider Call your healthcare provider: If youve recently traveled and have symptoms If you have been diagnosed with COVID-19 and your symptoms are worse To learn more To find out more about COVID-19, visit the CDC website at www .cdc.gov/coronavirus/2019-ncov/index.html. 2318-[address] [employer]. [address] [place] [address]. All rights reserved. This information is not intended as a substitute for professional medical care. Always follow your healthcare professional's instructions. This information has been adapted from [employer] Pending Studies at Discharge: No Stand-Alone Forms: My [employer], Smoking Cessation Medications and DC Order Prescriptions: New doxycycline hyclate 100 mg Capsule 100 mg PO BID Qty: 7 RF: 0 dexamethasone 4 mg Tablet 6 mg PO QAM Qty: 5 RF: 0 Continued lisinopril-hydrochlorothiazide 10-12.5 mg tablet 1 tab PO DAILY RF: 0 albuterol sulfate [Ventolin HFA] 90 mcg/actuation HFA aerosol inhaler 1 - 2 puff INHALATION DIRECTED PRN (Reason: Shortness Of Breath) RF: 0 Discontinued azithromycin 250 mg tablet 250 mg PO DAILY RF: 0 prednisone 20 mg tablet 0 mg PO DAILY RF: 0 Discharge Orders: Discharge Order (Routine); Ordered 02/23/20 Ordered By: Beau Cohen Admission Data Admit Date/Time: 02/20/20 00:57 Attending Provider: Beau Cohen Admit Provider: Josafat Burton Primary Care Provider: PCP,NO Other Providers: Josafat Burton Other Interventions: Discharge Summary Assessment (RN) Last Done: 02/23/20 10:45 Coding Level of Care Code D/C Day Management >30 mins Diagnoses Pneumonia due to COVID-19 virus U07.1; J12.89 Hypertension I10 Hypertension type: essential hypertension Dyspepsia R10.13 Abdominal distension R14.0 Morbid obesity with BMI of 40.0-44.9, adult E66.01; Z68.41 CHANDNI (obstructive sleep apnea) G47.33
== END 2020-02-23 13:46 | disposition home or self-care (01) | DRG 177 ==
LOC: ED 21:44 → 2N 02-20 00:57 → SUATTDRO 02-20 00:57 → 2N 02-20 02:22